=== PATIENT | male | born 1970 | race Caucasian/White ===

== ENCOUNTER → 2018-09-26 | Outpatient (CLI) | payer MEDICARE, OTHER ==
[~2018-09-26] MED LIST: CARI350T PO; FENT1PAT76 TP; GABA600T2 PO; OMEP-110 PO; OXYC-432 PO; TRAZ-136 PO
== END | disposition home or self-care (01) ==
LOC: CFH 14:14
PROVIDERS: ATTEND Specialist
DX: M48.061 Spinal stenosis, lumbar region without neurogenic claudication (principal); M43.26 Fusion of spine, lumbar region
CPT/HCPCS: 72148

== ENCOUNTER 2019-09-04 09:56 | Outpatient (CLI) | payer MEDICARE ==
[~2019-09-04 09:56] MED LIST changes: -GABA600T2 PO; +GABA600T7 PO; -TRAZ-136 PO; +TRAZ50TA66 PO
== END 2019-09-04 23:59 | disposition home or self-care (01) ==
LOC: CFH 09:56
PROVIDERS: ATTEND Internal Medicine
DX: R91.8 Other nonspecific abnormal finding of lung field (principal); F17.210 Nicotine dependence, cigarettes, uncomplicated
CPT/HCPCS: G0297

== ENCOUNTER 2019-12-10 10:12 | Emergency (ER) | payer MEDICARE ==
[~2019-12-10] VITALS: Ht 185.4 cm; Wt 115.7 kg
--- NOTE | 2019-12-10 10:15 | NUR ---
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
--- NOTE | 2019-12-10 10:51 | NUR ---
CXR AT BEDSIDE
[2019-12-10] MEDS ORDERED: METF500T27 PO (10:52)
--- NOTE | 2019-12-10 11:24 | NUR ---
PIV STARTED FROM WHICH LAB WERE DRAWN
[2019-12-10 11:34] LABS: BASOPHILS # (AUTO) 0.07 x10^3/uL (0-0.1); BASOPHILS % (AUTO) 1 % (0-1); EOSINOPHILS # (AUTO) 0.24 x10^3/uL (0-0.4); EOSINOPHILS % (AUTO) 3 % (1-7); LYMPHOCYTES % (AUTO) 36 % (22-44); MD NO; MEAN CORPUSCULAR HEMOGLOBIN 33.7 pg (27.5-34.5); MEAN CORPUSCULAR HGB CONC 34.2 g/dL (33.2-36.2); MEAN CORPUSCULAR VOLUME 98.6 fL (81-97); MEAN PLATELET VOLUME 8.8 fL (7.4-10.4); MONOCYTES # (AUTO) 0.51 x10^3/uL (0.2-0.8); MONOCYTES % (AUTO) 6 % (2-9); NEUTROPHILS # (AUTO) 4.25 x10^3/uL (1.8-6.8); NEUTROPHILS % (AUTO) 54 % (42-75); PLATELET COUNT 256 x10^3/uL (130-400); RED BLOOD COUNT 4.49 x10^6/uL (4.38-5.82); RED CELL DISTRIBUTION WIDTH 13.8 % (9.4-14.8)
[2019-12-10 11:46] LABS: ALANINE AMINOTRANSFERASE 51 U/L (12-78); ALBUMIN 3.9 g/dL (3.4-5.0); ANION GAP 9 mmol/L (5-15); CALCIUM 8.8 mg/dL (8.5-10.1); CHLORIDE 106 mmol/L (98-107); CREATININE 0.92 mg/dL (0.7-1.3)
[2019-12-10 11:49] LABS: ALKALINE PHOSPHATASE 71 U/L (45-117); BILIRUBIN,TOTAL 0.3 mg/dL (0.2-1.0); TOTAL PROTEIN 7.5 g/dL (6.4-8.2); TROPONIN I < 0.015 ng/mL (0.000-0.045)
--- NOTE | 2019-12-10 13:26 | NUR ---
1,000ft ambulatory pox 98% Provider made aware
[2019-12-10 13:47] VITALS: BP 160/68
== END 2019-12-10 14:29 | disposition home or self-care (01) ==
LOC: ED 12:28
DX: J44.1 Chronic obstructive pulmonary disease with (acute) exacerbation (principal); M79.89 Other specified soft tissue disorders; M79.622 Pain in left upper arm; E11.9 Type 2 diabetes mellitus without complications
CPT/HCPCS: 36415; 71045; 80053; 83880; 84484; 85025; 93005; 99284; J7512